=== PATIENT | female | born 1935 | race Caucasian/White ===

== ENCOUNTER 2021-05-24 10:47 | Inpatient (IN) | payer OTHER, MEDICAID ==
[~2021-05-24] VITALS: Ht 152.4 cm; Wt 50.0 kg
[~2021-05-24 10:47] MED LIST: DEXTROSE 50% WATER 50ML SYRINGE IV ONE; ETOMIDATE 2MG/ML 10ML VIAL IV ONE; SODIUM CHLORIDE 0.9% 10ML VIAL ONE; SUCCINYLCHOLINE CHLORIDE 200MG/10ML IV ONE
[2021-05-24] MEDS ORDERED: SODIUM CHLORIDE 0.9% 1000ML BAG (SEPSIS BOLUS) IV ONE (11:00)
[2021-05-24] MEDS ORDERED: NOREPINEPHRINE 8MG/250ML PMX 250 ML IV STA (11:01)
[2021-05-24] MEDS ORDERED: VANCOMYCIN 1 G PREMIX 200 ML IV ONE (11:15)
[2021-05-24] MEDS ORDERED: PIPERACILLIN/TAZ 3.375G PREMIX 50 ML IV ONE (11:15)
[2021-05-24 11:32] LABS: HEMOGLOBIN. 8.6 g/dL (12.0-16.0); MEAN CORPUSCULAR HEMOGLOBIN 31.9 pg (28.0-32.0); MEAN CORPUSCULAR VOLUME 100.2 fL (81.0-99.0); MEAN PLATELET VOLUME 10.2 fl (7.4-10.4); PLATELET 139 x1000/uL (130-400); RED CELL DISTRIBUTION WIDTH 17.2 % (11.6-14.6)
[2021-05-24 11:39] LABS: CHLORIDE 113 mEq/L (98-107)
[2021-05-24 11:46] LABS: BG BASE EXCESS -8.6 mmol/L (-2.0-2.0); BG CARBOXYHEMOGLOBIN 0.2 % (0.5-1.5); BG DEOXYHEMOGLOBIN 19.5 % (0.0-5.0); BG FRACTION INSPIRED OXYGEN 99.8; BG HCO3 ACT 18.3 mmol/L (22.0-26.0); BG METHEMOGLOBIN 0.3 % (0.0-1.5); BG OXYGEN SATURATION 80.4 % (92.0-98.5); BG PCO2 43.7 mmHg (35.0-45.0); BG PO2 53.5 mmHg (75.0-100.0); BG SAMPLE SITE RIGHT BRACHIAL; BG TOTAL HEMOGLOBIN 9.3 g/dL (12.0-18.0); BG VENT MODE MASK - NRB
[2021-05-24 11:53] LABS: INR 1.7; PROTHROMBIN TIME 17.9 sec (9.6-11.0)
[2021-05-24] MEDS ORDERED: DEXTROSE 50% WATER 50ML SYRINGE IV ONE (12:00)
[2021-05-24 12:34] LABS: CLARITY URINE CLOUDY (CLEAR); COLOR URINE DK YELLOW (YELLOW); KETONES URINE NEGATIVE (NEGATIVE); LEUKOCYTE ESTERASE URINE 1+ (NEGATIVE); NITRITE URINE NEGATIVE (NEGATIVE); OCCULT BLOOD URINE NEGATIVE (NEGATIVE); PROTEIN URINE NEGATIVE (NEGATIVE); SPECIFIC GRAVITY URINE 1.018 (1.005-1.030)
[2021-05-24 13:24] LABS: PLATELET ESTIMATE NORMAL
[2021-05-24 13:40] LABS: BG BASE EXCESS -12.1 mmol/L (-2.0-2.0); BG CARBOXYHEMOGLOBIN 0.3 % (0.5-1.5); BG DEOXYHEMOGLOBIN 0.7 % (0.0-5.0); BG FRACTION INSPIRED OXYGEN 100; BG HCO3 ACT 13.3 mmol/L (22.0-26.0); BG METHEMOGLOBIN 0.3 % (0.0-1.5); BG OXYGEN SATURATION 99.3 % (92.0-98.5); BG OXYHEMOGLOBIN 98.7 % (94.0-97.0); BG PCO2 29.1 mmHg (35.0-45.0); BG PH 7.279 (7.350-7.450); BG PO2 416.7 mmHg (75.0-100.0); BG SAMPLE SITE LEFT BRACHIAL; BG TOTAL RESPIRATORY RATE 20 b/min; BG VENT MODE VENT - AC
[2021-05-24] MEDS ORDERED: GUAIFENESIN 200MG/10ML SUGAR FREE UDC PO PRN (13:45)
[2021-05-24] MEDS ORDERED: NA PHOS,M-B/NA PHOS,DI-BA ENEMA 118ML PR PRN (13:45)
[2021-05-24] MEDS ORDERED: HYDROCODONE/ACETAMINOPHEN 5/325MG TABLET PO PRN (13:45)
[2021-05-24] MEDS ORDERED: ACETAMINOPHEN 650MG SUPP PR PRN (13:45)
[2021-05-24] MEDS ORDERED: DIPHENHYDRAMINE 50MG/ML VIAL IV PRN (13:45)
[2021-05-24] MEDS ORDERED: CLONIDINE 0.1MG TABLET PO PRN (13:45)
[2021-05-24] MEDS ORDERED: DEXTROSE 50% WATER 50ML SYRINGE IV PRN (13:45)
[2021-05-24] MEDS ORDERED: DOCUSATE SODIUM 100MG CAPSULE PO PRN (13:45)
[2021-05-24] MEDS ORDERED: ACETAMINOPHEN 325MG TABLET PO PRN (13:45)
[2021-05-24] MEDS ORDERED: ONDANSETRON HCL 4MG/2ML INJ IV PRN (13:45)
[2021-05-24] MEDS ORDERED: MORPHINE SULFATE 2 MG/ML CPJ (NOT FOR IM USE) IV PRN (13:45)
[2021-05-24] MEDS ORDERED: LORAZEPAM 0.5MG TABLET PO PRN (13:45)
[2021-05-24] MEDS ORDERED: MAGNESIUM/ALUMINUM HYDROXIDE/SIMETHICONE 30ML UDC PO PRN (13:45)
[2021-05-24] MEDS ORDERED: PROPOFOL 10MG/ML 100ML 100 ML IV PRN (13:45)
[2021-05-24] MEDS ORDERED: MIDAZOLAM HCL 100 MG in DEXT 5% WATER 80 ML IV ONE (14:00)
[2021-05-24] MEDS ORDERED: NALOXONE HCL 0.4MG/ML VIAL IV PRN (14:00)
[2021-05-24] MEDS ORDERED: LORAZEPAM 2MG/ML CPJ IV ONE (14:00)
[2021-05-24] MEDS: DEXT 5%/0.45% NACL 1000ML 1,000 ML IV SCH (14:03)
[2021-05-24] MEDS: BLOOD SUGAR DIAGNOSTIC STRIP TEST SCH ×6 (14:15→18:32)
[2021-05-24 14:45] LABS: TOTAL IRON BINDING CAPACITY 153 ug/dL (250-450)
[2021-05-24] MEDS ORDERED: VANCOMYCIN 1 G PREMIX 200 ML IV NR (14:45)
[2021-05-24 15:55] LABS: CREATINE KINASE MB FRACTION 80.5 ng/mL (0.5-3.6)
[2021-05-24] MEDS ORDERED: PHENYLEPHRINE 50 MG in DEXT 5% WATER 245 ML IV PRN (16:15)
[2021-05-24] MEDS ORDERED: NOREPINEPHRINE 8 MG in DEXT 5% WATER 242 ML IV PRN ×2 (16:45→19:30)
[2021-05-24] MEDS ORDERED: NOREPINEPHRINE 8MG/250ML PMX 250 ML IV PRN (16:45)
[2021-05-24 16:56] LABS: HEMATOCRIT 39.1 % (36.0-48.0); HEMOGLOBIN 12.1 g/dL (12.0-16.0)
[2021-05-24] MEDS ORDERED: SODIUM BICARBONATE 8.4% 1 MEQ/ML 50ML SYR IV NR (17:15)
[2021-05-24] MEDS: PHENYLEPHRINE 50 MG in DEXT 5% WATER 245 ML IV PRN (17:15)
[2021-05-24 18:27] LABS: BG BASE EXCESS -17.4 mmol/L (-2.0-2.0); BG CARBOXYHEMOGLOBIN 1.6 % (0.5-1.5); BG DEOXYHEMOGLOBIN 9.6 % (0.0-5.0); BG HCO3 ACT 11.3 mmol/L (22.0-26.0); BG METHEMOGLOBIN 1.3 % (0.0-1.5); BG OXYHEMOGLOBIN 87.5 % (94.0-97.0); BG PCO2 36.8 mmHg (35.0-45.0); BG PH 7.106 (7.350-7.450); BG PO2 79.9 mmHg (75.0-100.0); BG SAMPLE SITE RIGHT BRACHIAL; BG TOTAL HEMOGLOBIN 7.4 g/dL (12.0-18.0); BG VENT MODE VENT - AC
[2021-05-24] MEDS: FAMOTIDINE 20MG/2ML VIAL IV SCH (18:30)
[2021-05-24] MEDS: IPRATROPIUM/ALBUTEROL 0.5-3(2.5)MG/3ML NEB HHN SCH (19:14)
[2021-05-24 19:54] LABS: PROTHROMBIN TIME 20.1 sec (9.6-11.0)
[2021-05-24] MEDS ORDERED: PIPERACILLIN/TAZOBACTAM 3.375 G in DEXTROSE 5% WATER 50 ML IV SCH (21:00)
[2021-05-25 00:27] LABS: CREATINE KINASE MB FRACTION 75.3 ng/mL (0.5-3.6)
[2021-05-25] MEDS: BLOOD SUGAR DIAGNOSTIC STRIP TEST SCH ×4 (00:51→17:56)
[2021-05-25] MEDS ORDERED: METHYLPREDNISOLONE SOD SUCC 40 MG/ML VIAL IV SCH (02:00)
[2021-05-25] MEDS: VASOPRESSIN 20 UNITS in SODIUM CHLORIDE 0.9% 100 ML IV PRN ×3 (02:14→16:00)
[2021-05-25] MEDS: MEROPENEM 500 MG in SODIUM CHLORIDE 0.9% 50 ML IV SCH ×2 (02:14→17:56)
[2021-05-25] MEDS: DEXT 5%/0.45% NACL 1000ML 1,000 ML IV SCH (03:44)
[2021-05-25 05:44] LABS: BASOPHILS % 0.2 % (0.0-2.0); EOSINOPHILS % 0.2 % (0.0-5.0); HEMATOCRIT. 34.7 % (36.0-48.0); HEMOGLOBIN. 10.1 g/dL (12.0-16.0); LYMPHOCYTES % 10.7 % (20.0-50.0); MEAN CORPUSCULAR HEMOGLOBIN 32.8 pg (28.0-32.0); MEAN CORPUSCULAR VOLUME 112.8 fL (81.0-99.0); MONOCYTES % 4.8 % (2.0-8.0); NEUTROPHILS % 84.1 % (40.0-76.0); RED BLOOD CELL COUNT 3.08 mill/uL (4.2-5.4); RED CELL DISTRIBUTION WIDTH 18.1 % (11.6-14.6)
[2021-05-25 05:53] LABS: CHLORIDE 110 mEq/L (98-107)
[2021-05-25] MEDS: PHENYLEPHRINE 50 MG in DEXT 5% WATER 245 ML IV PRN ×3 (07:37→20:03)
[2021-05-25 08:04] LABS: BG CARBOXYHEMOGLOBIN 0.3 % (0.5-1.5); BG DEOXYHEMOGLOBIN 14.1 % (0.0-5.0); BG FRACTION INSPIRED OXYGEN 40; BG HCO3 ACT 3.1 mmol/L (22.0-26.0); BG METHEMOGLOBIN 0.5 % (0.0-1.5); BG OXYGEN SATURATION 85.8 % (92.0-98.5); BG OXYHEMOGLOBIN 85.1 % (94.0-97.0); BG PCO2 18.3 mmHg (35.0-45.0); BG PEEP (cmH2O) 0 cmH2O; BG PH 6.852 (7.350-7.450); BG PO2 68.8 mmHg (75.0-100.0); BG SAMPLE SITE RIGHT BRACHIAL; BG VENT MODE VENT - AC/VC
[2021-05-25] MEDS ORDERED: VANCOMYCIN 500 MG PREMIX 100 ML IV NR ×2 (09:00→20:00)
[2021-05-25] MEDS ORDERED: SODIUM BICARBONATE 8.4% 1 MEQ/ML 50ML SYR IV NR ×2 (09:00→11:45)
[2021-05-25] MEDS: FAMOTIDINE 20MG/2ML VIAL IV SCH (09:26)
[2021-05-25] MEDS ORDERED: SODIUM BICARBONATE 150 MEQ in DEXT 5%/0.45% NACL 1000ML 1,000 ML IV SCH (09:30)
[2021-05-25] MEDS ORDERED: HYDROCORTISONE SOD SUCCINATE 100 MG/2 ML VIAL IV NR (09:48)
[2021-05-25] MEDS: NOREPINEPHRINE 8MG/250ML PMX 250 ML IV PRN ×3 (10:28→18:58)
[2021-05-25 10:57] LABS: BG BASE EXCESS -13.6 mmol/L (-2.0-2.0); BG CARBOXYHEMOGLOBIN 0.5 % (0.5-1.5); BG DEOXYHEMOGLOBIN 1.8 % (0.0-5.0); BG FRACTION INSPIRED OXYGEN 40; BG HCO3 ACT 11.1 mmol/L (22.0-26.0); BG METHEMOGLOBIN 0.7 % (0.0-1.5); BG OXYGEN SATURATION 98.2 % (92.0-98.5); BG PCO2 21.8 mmHg (35.0-45.0); BG PH 7.326 (7.350-7.450); BG PO2 139.7 mmHg (75.0-100.0); BG SAMPLE SITE RIGHT BRACHIAL; BG TOTAL HEMOGLOBIN 5.9 g/dL (12.0-18.0); BG VENT MODE VENT - AC
[2021-05-25] MEDS: DOPAMINE 400 MG PREMIX 250 ML IV PRN ×2 (11:55→18:12)
[2021-05-25] MEDS ORDERED: LIDOCAINE HCL 1% 20ML VIAL (Pyxis) INJ ONE (12:49)
[2021-05-25 13:27] LABS: CREATINE KINASE MB FRACTION 69.3 ng/mL (0.5-3.6)
[2021-05-25] MEDS ORDERED: HYDROCORTISONE SOD SUCCINATE 100 MG/2 ML VIAL IV SCH (14:00)
[2021-05-25 14:04] LABS: HEPATITIS B SURFACE ANTIGEN NEGATIVE
[2021-05-25 15:33] LABS: PROTHROMBIN TIME 37.6 sec (9.6-11.0)
[2021-05-25 15:34] LABS: INR 3.9
[2021-05-25] MEDS ORDERED: EPINEPHRINE 5 MG in SODIUM CHLORIDE 0.9% 245 ML IV PRN (19:30)
[2021-05-25] MEDS: IPRATROPIUM/ALBUTEROL 0.5-3(2.5)MG/3ML NEB HHN SCH (20:28)
[2021-05-25 22:40] VITALS: BP 71/34
[2021-05-26] MEDS ORDERED: DEXTROSE 50% WATER 50ML SYRINGE IV ONE (08:13)
[2021-05-26] MEDS ORDERED: EPINEPHRINE 0.1MG/ML (1:10,000) 10ML SYR ONE (08:13)
[2021-05-26] MEDS ORDERED: CALCIUM CHLORIDE 1GM/10ML SYR IV ONE (08:13)
[2021-05-26] MEDS ORDERED: SODIUM BICARBONATE 8.4% 1 MEQ/ML 50ML SYR IV ONE (08:13)
== END 2021-05-25 22:50 | DRG 871 ==
LOC: ER 10:47 → EDBEDREQSVC 11:54 → EDBEDREQTM 13:34 → EDBEDREQ 13:34 → SUPCPDRO 16:10 → MICUSO 05-25 03:07
PROVIDERS: ADMIT Internal Medicine; ATTEND Internal Medicine
PROC: 5A12012 Performance of Cardiac Output, Single, Manual (ICD-10-PCS; principal; 2021-05-24)
PROC: 0BH17EZ Insertion of Endotracheal Airway into Trachea, Via Natural or Artificial Opening (ICD-10-PCS; 2021-05-24)
PROC: 5A1945Z Respiratory Ventilation, 24-96 Consecutive Hours (ICD-10-PCS; 2021-05-24)
DX: A41.9 Sepsis, unspecified organism (principal); R65.21 Severe sepsis with septic shock; G93.41 Metabolic encephalopathy; J96.01 Acute respiratory failure with hypoxia; J69.0 Pneumonitis due to inhalation of food and vomit; M62.82 Rhabdomyolysis; D68.9 Coagulation defect, unspecified; J98.11 Atelectasis; N39.0 Urinary tract infection, site not specified; D64.9 Anemia, unspecified; E11.649 Type 2 diabetes mellitus with hypoglycemia without coma; I12.9 Hypertensive chronic kidney disease with stage 1 through stage 4 chronic kidney disease, or unspecified chronic kidney disease; N18.9 Chronic kidney disease, unspecified; E11.22 Type 2 diabetes mellitus with diabetic chronic kidney disease; I46.9 Cardiac arrest, cause unspecified; L89.159 Pressure ulcer of sacral region, unspecified stage; R74.01 Elevation of levels of liver transaminase levels; R94.4 Abnormal results of kidney function studies; R68.0 Hypothermia, not associated with low environmental temperature; Z20.822 Contact with and (suspected) exposure to COVID-19
CPT/HCPCS: 36415; 36600; 71045; 76705; 76937; 80053; 80202; 81003; 82375; 82550; 82553; 82728; 82805; 82962; 83540; 83550; 83605; 83880; 84145; 84443; 84484; 85014; 85018; 85025; 85044; 86140; 86705; 86709; 86803; 86850; 86900; 87077; 87186; 87340; 87426; 93005; 93970; 94002; 94003; 94640; 99291; C1725; J0330; J1265; J1720; J2185; J2250; J2370; J2543; J2920; J3370; J3490; J7030; J7050; J7060; A4315